=== PATIENT | male | born 1970 | race Caucasian/White ===

== ENCOUNTER 2022-10-01 07:23 | Day surgery (SDC) | payer OTHER ==
[2022-09-29 14:25] VITALS: BMI 32.6
[2022-10-01] MEDS ORDERED: LIDOCAINE HCL/PF 2% SDV 5ML VIAL ONE (07:38)
[2022-10-01 09:21] VITALS: RESP 18
[2022-10-01] MEDS ORDERED: SIMETHICONE 80 MG TAB.CHEW (FP) PO ONE (09:30)
[2022-10-01 09:53] VITALS: BP 138/83; PULSE 84; TEMP 97
== END 2022-10-01 10:00 | disposition home or self-care (01) ==
LOC: FASU-ENDO 07:23
PROVIDERS: ATTEND Internal Medicine Gastroenterology
PROC: 0DB98ZX Excision of Duodenum, Via Natural or Artificial Opening Endoscopic, Diagnostic (ICD-10-PCS; 2022-10-01)
PROC: 0DB68ZX Excision of Stomach, Via Natural or Artificial Opening Endoscopic, Diagnostic (ICD-10-PCS; 2022-10-01)
PROC: 0DJD8ZZ Inspection of Lower Intestinal Tract, Via Natural or Artificial Opening Endoscopic (ICD-10-PCS; principal; 2022-10-01 08:09)
DX: Z12.11 Encounter for screening for malignant neoplasm of colon (principal); K29.50 Unspecified chronic gastritis without bleeding; K21.00 Gastro-esophageal reflux disease with esophagitis, without bleeding; B96.81 Helicobacter pylori [H. pylori] as the cause of diseases classified elsewhere
CPT/HCPCS: 43239; G0121; 88305-TC; 88342-TC